=== PATIENT | female | born 1995 | race Caucasian/White ===

== ENCOUNTER 2016-05-20 05:47 | Emergency (ER) | payer SELFPAY ==
[~2016-05-20] VITALS: Ht 152.4 cm; Wt 65.0 kg
[2016-05-20 05:49] VITALS: BP 129/78; PULSE 88; RESP 18; TEMP 97.8; O2SAT 98
--- NOTE | 2016-05-20 05:57 | PD ---
HPI Chief Complaint: abdominal pain Time Seen by Provider: 05:55 Travel History International Travel<30 days: No Contact w/Intl Traveler<30days: No Traveled to known affect area: No History of Present Illness HPI 20-year-old female came to the emergency room with history of generalized dull abdominal pain that started yesterday evening. Pain has been progressively getting worse. She has not been able to sleep the whole night. Patient says that she's been nauseous. She appeared to be anxious and in significant distress. She has not vomited or any diarrhea. Vital signs were otherwise stable. Patient says her last period was 2 months ago. She is usually irregular. She denied having any chance of being . [facility] Past Medical History Narrative Medical List of her past medical history as reviewed from the nursing note. Social History Tobacco Use: Yes Allergies-Medications (Allergen,Severity, Reaction): Coded Allergies: No Known Allergies (Unverified , 05/20/16) Comments No known drug allergies. Reported Meds & Prescriptions Reported Meds & Active Scripts Active No Active Prescriptions or Reported Medications Narrative Medication List of her home medications reviewed from the nursing note. Review of Systems Except as stated in HPI: all other systems reviewed are Neg Physical Exam Narrative GENERAL: Awake, alert, anxious, moderate distress SKIN: Warm and dry. HEAD: Atraumatic. Normocephalic. EYES: Pupils equal and round. No scleral icterus. No injection or drainage. ENT: No nasal bleeding or discharge. Mucous membranes pink and moist. NECK: Trachea midline. No JVD. CARDIOVASCULAR: Regular rate and rhythm. No murmur appreciated. RESPIRATORY: No accessory muscle use. Clear to auscultation. Breath sounds equal bilaterally. GASTROINTESTINAL: Abdomen soft, right lower quadrant tenderness, nondistended. Hepatic and splenic margins not palpable. MUSCULOSKELETAL: No obvious deformities. No clubbing. No cyanosis. No edema. NEUROLOGICAL: Awake and alert. No obvious cranial nerve deficits. Motor grossly within normal limits. Normal speech. PSYCHIATRIC: Appropriate mood and affect; insight and judgment normal. Data Data Last Documented VS Vital Signs Date Time Temp Pulse Resp B/P Pulse Ox O2 Delivery O2 Flow Rate FiO2 05/20/16 07:48 76 18 124/75 05/20/16 06:18 98 Room Air 05/20/16 05:49 97.8 Orders Complete Blood Count With Diff (05/20/16 06:00) Comprehensive Metabolic Panel (05/20/16 06:00) Lipase (05/20/16 06:00) Urinalysis - C+S If Indicated (05/20/16 06:00) Ct Abd/Pel W/O Iv Contrast (05/20/16 06:00) Iv Access Insert/Monitor (05/20/16 06:00) Ecg Monitoring (05/20/16 06:00) Oximetry (05/20/16 06:00) Morphine Inj (Morphine Inj) (05/20/16 06:00) Ondansetron Inj (Zofran Inj) (05/20/16 06:00) Sodium Chlor 0.9% 1000 Ml Inj (Ns 1000 M (05/20/16 06:00) Sodium Chloride 0.9% Flush (Ns Flush) (05/20/16 06:00) Ed Urine Pregnancytest Poc (05/20/16 06:00) Sodium Chlor 0.9% 1000 Ml Inj (Ns 1000 M (05/20/16 06:45) Ibuprofen (Motrin) (05/20/16 07:15) Labs Laboratory Tests Test 05/20/16 05/20/16 06:07 06:10 White Blood Count 9.2 TH/MM3 Red Blood Count 4.49 MIL/MM3 Hemoglobin 13.4 GM/DL Hematocrit 38.3 % Mean Corpuscular Volume 85.3 FL Mean Corpuscular Hemoglobin 29.9 PG Mean Corpuscular Hemoglobin 35.1 % Concent Red Cell Distribution Width 13.4 % Platelet Count 299 TH/MM3 Mean Platelet Volume 7.9 FL Neutrophils (%) (Auto) 53.1 % Lymphocytes (%) (Auto) 36.8 % Monocytes (%) (Auto) 7.4 % Eosinophils (%) (Auto) 2.0 % Basophils (%) (Auto) 0.7 % Neutrophils # (Auto) 4.9 TH/MM3 Lymphocytes # (Auto) 3.4 TH/MM3 Monocytes # (Auto) 0.7 TH/MM3 Eosinophils # (Auto) 0.2 TH/MM3 Basophils # (Auto) 0.1 TH/MM3 CBC Comment DIFF FINAL Differential Comment Sodium Level 139 MEQ/L Potassium Level 3.8 MEQ/L Chloride Level 106 MEQ/L Carbon Dioxide Level 24.8 MEQ/L Anion Gap 8 MEQ/L Blood Urea Nitrogen 11 MG/DL Creatinine 0.64 MG/DL Estimat Glomerular Filtration 120 ML/MIN Rate Random Glucose 99 MG/DL Calcium Level 8.6 MG/DL Total Bilirubin 0.3 MG/DL Aspartate Amino Transf 12 U/L (AST/SGOT) Alanine Aminotransferase 18 U/L (ALT/SGPT) Alkaline Phosphatase 63 U/L Total Protein 6.5 GM/DL Albumin 3.7 GM/DL Lipase 181 U/L Urine Color YELLOW Urine Turbidity HAZY Urine pH 6.0 Urine Specific [place] 1.029 Urine Protein TRACE mg/dL Urine Glucose (UA) NEG mg/dL Urine Ketones NEG mg/dL Urine Occult Blood TRACE Urine Nitrite NEG Urine Bilirubin NEG Urine Urobilinogen 2.0 MG/DL Urine Leukocyte Esterase TRACE Urine RBC 2 /hpf Urine WBC 3 /hpf Urine Squamous Epithelial 30 /hpf Cells Urine Mucus MOD /lpf Microscopic Urinalysis Comment CULT NOT INDICATED MDM Medical Decision Making Medical Screen Exam Complete: Yes Emergency Medical Condition: Yes Medical Record Reviewed: Yes Differential Diagnosis Acute appendicitis, UTI, renal colic, abdominal pain NOS Narrative Course 6:37 AM based on my history and exam my suspicion for appendicitis was high. CBC and urinalysis looks to be within acceptable limits. Chemistry and LFTs are pending. CAT scan is pending. Patient was medicated for pain and nausea. She is receiving IV fluid bolus. 7:[address] scan shows ovarian cyst in the right side. And the appendix is commented as normal appearing. Patient will be discharged home. Procedures EKG Prior to Arrival: No Diagnosis Primary Impression: Right lower quadrant abdominal pain Additional Impression: Ovarian cyst Qualified Code: N83.201 - Cyst of right ovary Referrals: Primary Care Physician 2 days Additional Instructions: Follow-up with your primary care in couple days. Take Motrin/Advil/ibuprofen for the pain. Med/Other Pt SpecificInfo: No Change to Meds Scripts No Active Prescriptions or Reported Meds Disposition: DISCHARGE HOME Condition: Stable Stan Landry MD May 20, 2016 05:57
[2016-05-20] MEDS ORDERED: ONDANSETRON HCL 4 MG/2 ML VIAL IVP ONE (06:00)
[2016-05-20] MEDS ORDERED: SODIUM CHLORIDE 0.9% FLUSH 5 ML FLUSH IVF PRN (06:00)
[2016-05-20] MEDS ORDERED: SODIUM CHLOR 0.9% 1000 ML INJ 1,000 ML IV SCH (06:00)
[2016-05-20] MEDS ORDERED: MORPHINE SULFATE 4 MG/ML INJ IV PUSH ONE (06:00)
[2016-05-20 06:18] VITALS: BP 121/76; PULSE 62; RESP 16; O2SAT 98
[2016-05-20 06:20] LABS: AUTOMATED NEUTROPHIL # 4.9 TH/MM3 (1.8-7.7); BASOPHIL # 0.1 TH/MM3 (0-0.2); BASOPHIL % 0.7 % (0.0-2.0); EOSINOPHIL # 0.2 TH/MM3 (0-0.4); HEMATOCRIT 38.3 % (35.0-46.0); HEMO FLAGS DIFF FINAL; LYMPH % 36.8 % (9.0-44.0); LYMPHOCYTE # 3.4 TH/MM3 (1.0-4.8); MEAN CELL VOLUME 85.3 FL (80.0-100.0); MEAN CORPUSCULAR HEMOGLOBIN 29.9 PG (27.0-34.0); MEAN CORPUSCULAR HGB CONC 35.1 % (32.0-36.0); MONO % 7.4 % (0.0-8.0); NEUT % 53.1 % (16.0-70.0); PLATELET COUNT 299 TH/MM3 (150-450); RED BLOOD COUNT 4.49 MIL/MM3 (4.00-5.30); RED CELL DISTRIBUTION WIDTH 13.4 % (11.6-17.2); WHITE BLOOD COUNT 9.2 TH/MM3 (4.0-11.0)
[2016-05-20 06:27] LABS: BLOOD, URINE TRACE (NEG); COMMENT (UR) CULT NOT INDICATED; CULTURE IF INDICATED CULT NOT INDICATED; GLUCOSE,URINE NEG (NEG); KETONE, URINE NEG (NEG); MUCUS URINE MOD /lpf (OCC); NITRITE,URINE NEG (NEG); SQUAMOUS EPITHELIAL CELL URINE 30 /hpf (0-5); URINE COLOR YELLOW (YELLW/STRAW)
[2016-05-20] MEDS ORDERED: SODIUM CHLOR 0.9% 1000 ML INJ 1,000 ML IV ONE (06:45)
[2016-05-20 06:50] LABS: ANION GAP 8 MEQ/L (5-15); AST (GOT) 12 U/L (16-38); BICARBONATE 24.8 MEQ/L (21.0-32.0); BLOOD UREA NITROGEN 11 MG/DL (7-18); CHLORIDE 106 MEQ/L (98-107); GLOMERULAR FILTRATION RATE 120 ML/MIN (>89); POTASSIUM 3.8 MEQ/L (3.5-5.1); SODIUM (NA) 139 MEQ/L (136-145)
--- NOTE | 2016-05-20 06:52 | RADRPT ---
EXAM DATE/TIME: 05/20/2016 06:29 [facility] COMPARISON: No previous studies available for comparison. INDICATIONS : Diffuse abdominal pain with nausea. ORAL CONTRAST: No oral contrast ingested. RADIATION DOSE: 6.81 CTDIvol (mGy) MEDICAL HISTORY : gastritis SURGICAL HISTORY : None. ENCOUNTER: Initial ACUITY: 1 day PAIN SCALE: 6/10 LOCATION: abdomen TECHNIQUE: Volumetric scanning of the abdomen and pelvis was performed. Using automated exposure control and ad justment of the mA and/or kV according to patient size, radiation dose was kept as low as reasonably achievable to obtain optimal diagnostic quality images. FINDINGS: LOWER LUNGS: The visualized lower lungs are clear. LIVER: Homogeneous density without lesion. There is no dilation of the biliary tree. No calcified gallston es. SPLEEN: Normal size without lesion. PANCREAS: Within normal limits. KIDNEYS: Normal in size and shape. There is no mass, stone, or hydronephrosis. ADRENAL GLANDS: Within normal limits. VASCULAR: There is no aortic aneurysm. BOWEL/MESENTERY: The stomach, small bowel, and colon demonstrate no acute abnormality. There is no free intraperitone al air or fluid. The appendix is well-visualized, normal. ABDOMINAL WALL: Within normal limits. RETROPERITONEUM: There is no lymphadenopathy. BLADDER: No wall thickening or mass. REPRODUCTIVE: 2.6 cm right ovarian cyst. No free fluid. INGUINAL: There is no lymphadenopathy or hernia. MUSCULOSKELETAL: Within normal limits for patient age. CONCLUSION: 1. Right ovarian cysts. 2. Normal appendix. Donnie Turner MD on May 20, 2016 at 6:48 Board Certified Radiologist. This report was verified electronically.
[2016-05-20 06:53] LABS: ALKALINE PHOSPHATASE 63 U/L (45-117); ALT (GPT) 18 U/L (9-42); TOTAL BILIRUBIN ADULT 0.3 MG/DL (0.2-1.0)
[2016-05-20] MEDS ORDERED: IBUPROFEN 600 MG TAB PO ONE (07:15)
[2016-05-20 07:48] VITALS: BP 124/75
== END 2016-05-20 07:49 | disposition home or self-care (01) ==
LOC: NEPC 05:47
DX: N83.201 Unspecified ovarian cyst, right side (principal); Z72.0 Tobacco use
CPT/HCPCS: 74176; 80053; 81001; 83690; 84703; 85025; 96374; 96375; 99284; J2270; J2405; J7030

== ENCOUNTER 2016-08-28 13:42 | Emergency (ER) | payer MEDICAID, OTHER ==
[~2016-08-28] VITALS: Ht 160 cm; Wt 60.0 kg
[2016-08-28 13:52] VITALS: BP 119/74; PULSE 87; RESP 14; TEMP 98.2; O2SAT 99
--- NOTE | 2016-08-28 16:01 | PD ---
HPI Chief Complaint: Psychiatric Symptoms Time Seen by Provider: 15:42 Travel History International Travel<30 days: No Contact w/Intl Traveler<30days: No Traveled to known affect area: No History of Present Illness HPI This is a 21-year-old female who presents to the emergency department having been brought under a [place] act by police because she got in an argument with her , ended up outside and was having a "panic attack", yelling and screaming. The neighbors were concerned and called police. The police put her under a [place] act for wanting to hurt herself. The patient is here in the emergency department currently and says she was just upset with her and felt trapped. She denies any thoughts of hurting herself or others. She says she was herself. She has no history of psychiatric disease and has never been hospitalized for depression. I spoke to the patient's mother who also reports that she has no concerns about depression or suicide in her daughter. I spoke to the patient's who also has no concerns for suicide or depression in her and corroborates the story that the patient and her were in an argument earlier today which led to these sequence of events. [facility] Past Medical History Medical History: Denies Significant Hx Gastrointestinal Disorders: Yes (gastritis) Immunizations Current: Yes ?: Not : 0 Past Surgical History Surgical History: No Previous Surgery Tonsillectomy: Yes Social History Alcohol Use: Yes (Social) Tobacco Use: Yes Substance Use: No Allergies-Medications (Allergen,Severity, Reaction): Coded Allergies: No Known Allergies (Unverified , 05/20/16) Reported Meds & Prescriptions Reported Meds & Active Scripts Active No Active Prescriptions or Reported Medications Review of Systems Except as stated in HPI: all other systems reviewed are Neg Physical Exam Narrative GENERAL:Well appearing, no acute distress SKIN: Focused skin assessment warm and dry. HEAD: Atraumatic. Normocephalic. EYES: Pupils equal and round. No injection or drainage. ENT: Moist mucous membranes NECK: Trachea midline. CARDIOVASCULAR: Regular rate and rhythm. No murmur appreciated. RESPIRATORY: Clear to auscultation. Breath sounds equal bilaterally. GASTROINTESTINAL: Abdomen soft, non-tender, nondistended. MUSCULOSKELETAL: No obvious deformities. NEUROLOGICAL: Awake and alert. No obvious cranial nerve deficits. Moving all extremities PSYCHIATRIC: Appropriate mood and affect; insight and judgment normal. Data Data Last Documented VS Vital Signs Date Time Temp Pulse Resp B/P Pulse Ox O2 Delivery O2 Flow Rate FiO2 08/28/16 13:57 80 08/28/16 13:52 98.2 14 119/74 99 Orders Complete Blood Count With Diff (08/28/16 15:42) Comprehensive Metabolic Panel (08/28/16 15:42) MDM Medical Decision Making Medical Screen Exam Complete: Yes Emergency Medical Condition: Yes Interpretation(s) afebrile, no tachycardia, normotensive Differential Diagnosis Depression, anxiety, bipolar disorder, adjustment reaction Narrative Course This is a 21-year-old female who presents to the emergency department having been in a argument with her when she had a "panic attack". Neighbors called police. Police put the patient under a [place] act which states that she wanted to hurt herself. Patient adamantly denies wanting to hurt herself and is future oriented. Her mom and her both corroborate her story. I don't think she meets criteria for [place] act at this time and I think this reflected an adjustment reaction in the setting of an argument with her . I think the patient is safe for discharge. Diagnosis Primary Impression: Adjustment reaction Qualified Code: F43.20 - Adjustment disorder, unspecified type Patient Instructions: General Instructions Additional Instructions: Follow up with Constance Coleman in regards to psychiatric or substance related issues at: [address] [place], [place] [id number] Med/Other Pt SpecificInfo: No Change to Meds Scripts No Active Prescriptions or Reported Meds Disposition: 01 DISCHARGE HOME Condition: Stable Genesis Rosario MD August 28, 2016 16:01
[2016-08-28 16:02] LABS: AUTOMATED NEUTROPHIL # 6.5 TH/MM3 (1.8-7.7); BASOPHIL % 0.4 % (0.0-2.0); EOSINOPHIL # 0.2 TH/MM3 (0-0.4); EOSINOPHIL % 1.6 % (0.0-4.0); HEMATOCRIT 45.4 % (35.0-46.0); HEMO FLAGS DIFF FINAL; LYMPH % 23.6 % (9.0-44.0); LYMPHOCYTE # 2.3 TH/MM3 (1.0-4.8); MEAN CELL VOLUME 87.6 FL (80.0-100.0); MEAN CORPUSCULAR HEMOGLOBIN 29.2 PG (27.0-34.0); MEAN CORPUSCULAR HGB CONC 33.3 % (32.0-36.0); MONO % 5.9 % (0.0-8.0); NEUT % 68.5 % (16.0-70.0); PLATELET COUNT 279 TH/MM3 (150-450); RED BLOOD COUNT 5.18 MIL/MM3 (4.00-5.30); RED CELL DISTRIBUTION WIDTH 13.8 % (11.6-17.2); WHITE BLOOD COUNT 9.6 TH/MM3 (4.0-11.0)
[2016-08-28 16:24] LABS: ALT (GPT) 24 U/L (9-42); ANION GAP 7 MEQ/L (5-15); AST (GOT) 27 U/L (16-38); BICARBONATE 25.8 MEQ/L (21.0-32.0); BLOOD UREA NITROGEN 9 MG/DL (7-18); CHLORIDE 107 MEQ/L (98-107); GLOMERULAR FILTRATION RATE 123 ML/MIN (>89); POTASSIUM 4.4 MEQ/L (3.5-5.1); SODIUM (NA) 140 MEQ/L (136-145)
[2016-08-28 16:27] LABS: ALKALINE PHOSPHATASE 56 U/L (45-117); TOTAL BILIRUBIN ADULT 0.2 MG/DL (0.2-1.0)
== END 2016-08-28 16:42 | disposition home or self-care (01) ==
LOC: NEPD 13:42
DX: F43.20 Adjustment disorder, unspecified (principal); Z72.0 Tobacco use
CPT/HCPCS: 80053; 85025; 99283